=== PATIENT | female | born 1960 | race African-American/Black ===

== ENCOUNTER 2017-01-31 19:11 | Observation (INO) | payer OTHER ==
--- NOTE | 2017-01-31 19:16 | PDOC ---
History of Present Illness - General History Source: Patient Exam Limitations: No Limitations - History of Present Illness Initial Comments: 01/31/17 21:13 A portion of this note was documented by scribe services under my direction. I have reviewed the details of the note, within reason, and agree with the documentation. The case summary and management plan written by me. This is a 56-year-old female with history of multiple medical problems including cancer, sarcoid, sickle cell and fibromyalgia comes in complaining of productive cough, shortness of breath, pleuritic type chest pain and a sore throat. In addition to that patient was also complaining of swelling of her left lower extremity. Patient's chest x-ray was negative for any acute pathology. Patient's ultrasound Doppler was negative for DVT. Patient is a pack and a half a day smoker and her O2 sat here in the emergency room was in the low 90s on room air. It is unclear as to what patient's baseline O2 sat is however she is not on home oxygen. Patient cardiogram shows some lateral ischemic changes with 1mm or less ST depressions with flipped T's laterally. Patient will be admitted to a telemetry observation bed for additional cardiac enzymes and to rule her out for acute coronary syndrome. <Lynda Delcid I - Last Filed: 01/31/17 21:12> - General History Source: Patient Exam Limitations: No Limitations - History of Present Illness Initial Comments: 01/31/17 19:47 The patient is a 56 year old female, with a significant past medical history of sickle cell anemia, sarcoidosis, fibromyalgia, colon cancer, and pancreatitis, who presents to the emergency department with left calf pain and cough for approximately 3 weeks. The patient reports initially developing a cough 3 weeks ago, which was dry in nature. Since then, patient reports her cough has worsened to the point where she is unable to speak much and she has a sore throat. Patient reports developing associated left calf tightness, cramping, and pain. She reports increased swelling to her left leg. Patient reports difficulty ambulating secondary to calf pain, cough, and shortness of breath. She reports mild shortness of breath and night sweats. She denies any associated chest pain or palpitations. She denies any fever, chills, headache, dizziness, or lightheadedness. She denies any recent travel or sick contacts. PAST MEDICAL HISTORY: Sickle cell anemia, sarcoidosis, fibromyalgia, colon cancer, and pancreatitis PAST SURGICAL HISTORY: Right hemicolectomy(2000), Annie fundoplication FAMILY HISTORY: No pertinent history SOCIAL HISTORY: Pt lives with family. Current everyday smoker. No ETOH or recreational drug use. MEDICATIONS: Reviewed ALLERGIES: As per nursing notes PCP: Dr. Garcia General: No fevers or chills, no weakness, no weight loss HEENT: Yes sore throat. No change in vision. No ear pain CardioVascular: Yes shortness of breath. No chest pain. Respiratory: Yes cough, difficulty speaking. No wheezing. Gastrointestinal: No nausea, vomiting, diarrhea or constipation, No rectal bleeding Genitourinary: No dysuria, hematuria, or frequency Musculoskeletal: Yes left calf pain/cramping/ tightness, left leg swelling. No other joint or muscle pain or swelling Neurologic: Yes difficulty ambulating. No headache, vertigo, dizziness or loss of consciousness Psychiatric: No depression Skin: No rashes or easy bruising Endocrine: No increased thirst or abnormal weight change Allergic: No skin or latex allergy All other systems reviewed and normal General: Chronically ill appearing. Well-nourished, no acute distress HEENT: Pt is only able to talk in a whisper. Throat: Mild posterior oropharynx erythema, otherwise no exudates. Neck: Supple, no meningeal signs, no lymphadenopathy Eyes: Pupils equal reactive and round, extraocular motion intact Chest: Nontender to palpation Cardiac: S1-S2 normal, regular rate and rhythm, no murmurs rubs or gallops Respiratory: Good air entry bilaterally, but each deep inspiration produces a productive sounding cough. Abdomen: Soft, nondistended, normal bowel sounds, nontender to palpation diffusely Extremities: Moderate left lower extremity swelling diffusely to the calf, knee , and thigh; no increased erythema or warmth, and no tenderness to palpation. Otherwise remainder of the extremities are warm, dry, no cyanosis, clubbing, or edema Skin: No rashes Neuro: Alert and oriented x3, nonfocal exam, grossly intact, normal gait Psych: Normal mood and affect <Octavio Ashley - Last Filed: 01/31/17 21:33> - General Chief Complaint: Pain Stated Complaint: LEFT KNEE PAIN/SWELLING, SORE THROAT Time Seen by Provider: 01/31/17 19:14 Past History - Past Medical History Cancer: Yes (COLON CA, carcinoid tumor) GI Disorders: Yes (pancreatitis) - Surgical History Abdominal Surgery: Yes (Annie fundoplication, R hemicolectomy 2000 ) - Suicide/Smoking/Psychosocial Hx Smoking Status: Yes Smoking History: Current every day smoker Years of Tobacco Use: 7 Have you smoked in the past 12 months: Yes Number of Cigarettes Smoked Daily: 30 'Breaking Loose' booklet given: 07/06/13 Hx Alcohol Use: No Drug/Substance Use Hx: No Substance Use Type: None <Lynda Delcid I - Last Filed: 01/31/17 21:12> <Octavio Ashley - Last Filed: 01/31/17 21:33> - Past Medical History Allergies/Adverse Reactions: Allergies Allergy/AdvReac Type Severity Reaction Status Date / Time atropine Allergy Verified 01/31/17 19:16 codeine [Codeine] Allergy Verified 01/31/17 19:16 latex Allergy Verified 01/31/17 19:16 meperidine HCl [From Demerol] Allergy Verified 01/31/17 19:16 morphine Allergy Verified 01/31/17 19:16 CONTRAST Allergy Uncoded 01/31/17 19:16 IV CONTRAST Allergy Uncoded 01/31/17 19:16 Home Medications: Ambulatory Orders Trazodone HCl 100 mg PO HS 09/12/12 Oxycodone HCl/Acetaminophen [Percocet 5-325 mg Tablet -] 2 tab PO Q4H PRN #20 tablet 07/06/13 Hydromorphone [Dilaudid -] 4 mg PO Q3H 01/31/17 *Physical Exam - Vital Signs Last Vital Signs Temp Pulse Resp BP Pulse Ox 98.3 F 118 H 20 130/80 98 01/31/17 19:13 01/31/17 19:13 01/31/17 19:13 01/31/17 19:13 01/31/17 19:13 <Octavio Ashley - Last Filed: 01/31/17 21:33> Heart Score/ECG Review - ECG Intrepretation Comment:: 01/31/17 19:39 Vent Rate: 97 bpm IMPRESSION: Normal sinus rhythm. T wave abnormality, consider anterolateral ischemia. <Octavio Ashley - Last Filed: 01/31/17 21:33> ED Treatment Course - LABORATORY CBC & Chemistry Diagram: 01/31/17 20:00 01/31/17 20:00 <Lynda Delcid I - Last Filed: 01/31/17 21:12> - LABORATORY CBC & Chemistry Diagram: 01/31/17 20:00 01/31/17 20:00 - RADIOLOGY Radiograph Interpretation: 01/31/17 21:30 EXAM: CXR INTERPRETED BY: Dr. Chakraborty REVIEWED BY: Dr. Iniguez IMPRESSION: No evidence of airspace consolidation, pulmonary vascular congestion or pleural effusion. EXAM: Left Lower Extremity Venous duplex US INTERPRETED BY: Dr. Chakraborty REVIEWED BY: Dr. Iniguez IMPRESSION: No evidence of left lower extremity deep vein thrombosis <Octavio Ashley - Last Filed: 01/31/17 21:33> *DC/Admit/Observation/Transfer - Discharge Dispostion Admit: Yes <Lynda Delcid I - Last Filed: 01/31/17 21:12> - Attestations Scribe Attestion: 01/31/17 19:39 Documentation prepared by Octavio Ashley, acting as medical radiation therapist for Lynda Delcid MD. <Octavio Ashley - Last Filed: 01/31/17 21:33> Diagnosis at time of Disposition: Viral upper respiratory illness Chest pain Qualifiers: Chest pain type: unspecified Qualified Code(s): R07.9 - Chest pain, unspecified - Discharge Dispostion Condition at time of disposition: Good - Referrals Referrals: Nathan Garcia MD [Primary Care Provider] -
[2017-01-31] MEDS ORDERED: HYDROmorphone HCL CARPU-JECT 1 MG/1 ML DISP.SYRIN IVPUSH ONE ×2 (19:26→21:05)
[2017-01-31] MEDS ORDERED: HYDROmorphone HCL CARPU-JECT 1 MG/1 ML DISP.SYRIN ONE ×2 (19:28→21:07)
[2017-01-31] MEDS ORDERED: ASPIRIN 81 MG CHEWABLE TABLETS PO ONE (19:36)
[2017-01-31 19:44] VITALS: BMI 21.6
[2017-01-31] MEDS ORDERED: ASPIRIN 325 MG TABLET ONE (20:15)
[2017-01-31 20:26] LABS: BASOPHIL 3.1 % (0-2.0); EOSINOPHIL 0.2 % (0-4.5); MCH 25.6 pg (25.7-33.7); MCHC 32.5 g/dl (32.0-36.0); MEAN CELL VOLUME 78.7 fl (80-96); MEAN PLT VOLUME 9.7 fl (7.5-11.1); NEUTROPHILS 51.9 % (42.8-82.8); PLATELET COUNT 263 K/MM3 (134-434); WHITE BLOOD COUNT 5.3 K/mm3 (4.0-10.8)
[2017-01-31 20:35] LABS: INR 0.95 (0.82-1.09); PROTHROMBIN TIME (PATIENT) 10.7 SEC (10.2-13.0)
[2017-01-31 20:54] LABS: ALBUMIN 3.9 g/dl (3.5-5.0); ALK PHOS 57 U/L (32-92); ANION GAP 9 (8-16); BILIRUBIN,TOTAL 0.5 mg/dl (0.2-1.0); CALCIUM 10.2 mg/dl (8.4-10.2); CO2 21 mmol/L (22-28); CPK 92 IU/L (26-192); CREATININE 0.5 mg/dl (0.6-1.3); GLUCOSE,RANDOM 96 mg/dl (74-106); SGOT/AST 22 U/L (10-42); SGPT/ALT 9 U/L (10-40); TOT PROT 7.1 g/dl (6.4-8.3)
[2017-01-31 21:04] LABS: TROPONIN I (DFP) < 0.03 ng/ml (0.03-0.50)
--- NOTE | 2017-01-31 23:21 | HP ---
CHIEF COMPLAINT: cough PCP: Dr. Garcia in [place] HISTORY OF PRESENT ILLNESS: This is a 56 year old female with significant past medical history of sarcoidosis, fibromyalgia, COPD presented to the ED with left leg swelling and pain x 3 weeks, cough and hoarse voice x 5 weeks. Pt denies chest pain, SOB, palpitations. She states the cough just takes over and is unbearable. ER course was notable for: (1) CXR no acute findings (2) Sono LLE without evidence of DVT (3) ECG with abnormal T waves Recent Travel: pt denies PAST MEDICAL HISTORY: Sickle cell trait sarcoidosis fibromyalgia colon CA pancreatitis COPD DM-diet controlled PAST SURGICAL HISTORY: colon resection 1972 Annie fundoplication-2005 total hysterectomy cholecystectomy appendectomy L4-L5 surgery x 2 Social History: Smoking: smoke 1ppd x "3 years" Alcohol: pt denies Drugs: pt denies Family History: mother age 47, leukemia, lung and breast CA father unknown 6 half siblings, no medical issues Allergies atropine Allergy (Verified 01/31/17 19:16) codeine [Codeine] Allergy (Verified 01/31/17 19:16) latex Allergy (Verified 01/31/17 19:16) meperidine HCl [From Demerol] Allergy (Verified 01/31/17 19:16) morphine Allergy (Verified 01/31/17 19:16) CONTRAST Allergy (Uncoded 01/31/17 19:16) IV CONTRAST Allergy (Uncoded 01/31/17 19:16) HOME MEDICATIONS: 3 Medication Instructions Recorded Trazodone HCl 100 mg PO HS 09/12/12 Hydromorphone [Dilaudid -] 4 mg PO Q3H 01/31/17 Albuterol MDI PRN Albuterol nebulizer PRN REVIEW OF SYSTEMS CONSTITUTIONAL: Absent: fever, chills, diaphoresis, generalized weakness, malaise, loss of appetite, weight change HEENT: Absent: rhinorrhea, nasal congestion, throat pain, throat swelling, difficulty swallowing, mouth swelling, ear pain, eye pain, visual changes CARDIOVASCULAR: Present: Left leg swelling and pain Absent: chest pain, syncope, palpitations, irregular heart rate, lightheadedness , peripheral edema RESPIRATORY: Present: cough, hoarse voice Absent: shortness of breath, dyspnea with exertion, orthopnea, wheezing, stridor , hemoptysis GASTROINTESTINAL: Absent: abdominal pain, abdominal distension, nausea, vomiting, diarrhea, constipation, melena, hematochezia GENITOURINARY: Absent: dysuria, frequency, urgency, hesitancy, hematuria, flank pain, genital pain MUSCULOSKELETAL: Absent: myalgia, arthralgia, joint swelling, back pain, neck pain SKIN: Absent: rash, itching, pallor HEMATOLOGIC/IMMUNOLOGIC: Absent: easy bleeding, easy bruising, lymphadenopathy, frequent infections ENDOCRINE: Absent: unexplained weight gain, unexplained weight loss, heat intolerance, cold intolerance NEUROLOGIC: Absent: headache, focal weakness or paresthesias, dizziness, unsteady gait, seizure, mental status changes, bladder or bowel incontinence PSYCHIATRIC: Absent: anxiety, depression, suicidal or homicidal ideation, hallucinations. PHYSICAL EXAMINATION Vital Signs - 24 hr 3 01/31/17 01/31/17 01/31/17 19:13 21:15 22:46 Temperature 98.3 F 98.3 F Pulse Rate 118 H 78 Pulse Rate [ 87 Apical] Respiratory 20 16 18 Rate Blood Pressure 130/80 123/82 Blood Pressure 118/64 [Right Arm] O2 Sat by Pulse 98 96 96 Oximetry (%) GENERAL: Awake, alert, and fully oriented, in no acute distress. HEAD: Normal with no signs of trauma. EYES: Pupils equal, round and reactive to light, extraocular movements intact, sclera anicteric, conjunctiva clear. No lid lag. EARS, NOSE, THROAT: Ears normal, nares patent, oropharynx clear without exudates. Moist mucous membranes. NECK: Normal range of motion, supple without lymphadenopathy, JVD, or masses. LUNGS: Breath sounds equal, clear to auscultation bilaterally. No wheezes, and no crackles. No accessory muscle use. +cough with deep inspiration HEART: Regular rate and rhythm, normal S1 and S2 without murmur, rub or gallop. ABDOMEN: Soft, nontender, not distended, normoactive bowel sounds, no guarding, no rebound, no masses. No hepatomegaly or splenomegaly. MUSCULOSKELETAL: Normal range of motion at all joints. No bony deformities or tenderness. No CVA tenderness. UPPER EXTREMITIES: 2+ pulses, warm, well-perfused. No cyanosis. No clubbing. No peripheral edema. LOWER EXTREMITIES: 2+ pulses, warm, well-perfused. No calf tenderness. 1+ peripheral edema LLE. NEUROLOGICAL: Cranial nerves II-XII intact. Normal speech. Normal gait. PSYCHIATRIC: Cooperative. Good eye contact. Appropriate mood and affect. SKIN: Warm, dry, normal turgor, no rashes or lesions noted, normal capillary refill. Radiology Reports Left lower extremity venous duplex. Indication: Left lower extremity pain and swelling. Technique: Real-time grayscale, color Doppler and spectral Doppler sonogram of the deep veins in the left lower extremity was performed with the technologist utilizing compression and augmentation maneuvers. Left common femoral vein including its junction with the greater saphenous vein , the profunda femoral, femoral, popliteal and posterior tibial veins were interrogated in the left lower extremity. Right common femoral vein was also interrogated. Images are submitted for review. Comparison: None. Findings: No evidence of deep vein thrombosis in the left lower extremity. The interrogated veins, as listed above, demonstrate compressibility and flow related color Doppler signal. Technologist reports patient's tenderness/sensitivity in the left calf, which limits augmentation of the posterior tibial veins in distal popliteal vein. Interrogated portion of the right common femoral vein is also patent with no evidence of thrombosis. Impression: No evidence of left lower extremity deep vein thrombosis, as above. Reported By: Kumar Chakraborty MD 01/31/172109 Chest x-ray-AP portable view Indication: Dyspnea. Comparison: 09/12/2012 chest x -ray Findings: No evidence of airspace consolidation, pulmonary vascular congestion or pleural effusion. There is no definable pneumothorax. Normal size and contours of the cardia mediastinal silhouette. There is calcific atherosclerosis along the aortic arch. There are right hilar surgical clips in right paratracheal surgical clips. No abnormal deviation of the trachea. Impression: No evidence of airspace consolidation, pulmonary vascular congestion or pleural effusion. Reported By: Kumar Chakraborty MD 01/31/172023 ECG Normal Sinus Rhythm Vent rate 97, QTC 459 TWI lead 2, 3, aVF, V4-46 ASSESSMENT/PLAN: 56yF with PMH sickle cell trait, sarcoidosis, fibromyalgia, COPD, DM presented to the ED with cough and left lower extremitiy swelling. She has been admitted for abnormal ECG findings. Abnormal ECG - in absence of chest pain or other symptoms unlikely to be significant - will trend troponin x 3 - repeat ECG in am - monitor on tele - cardiology consult ordered. Cough/COPD - start standing duoneb - pt is allergic to codeine, unable to give robitussin with codeine - pt states she is allergic to all steroids (they gave her the shakes) - unwilling to trial an inhaled steroid - pulmonary consult ordered. - given persistent and spastic cough for over 4 weeks, will test for pertussis and place on isolation. fibromyalgia - cont home dilaudid DVT PPX - chemoprophylaxis deferred as expected LOS <48h FEN - tolerating po fluids - BMP in am - diabetic diet Dispo: Pt currently requires inpatient observation for management of her emergent conditions. Expected LOS is less than 2 [place] Visit type - Emergency Visit Emergency Visit: Yes ED Registration Date: 01/31/17 Care time: The patient presented to the Emergency Department on the above date and was hospitalized for further evaluation of their emergent condition. - New Patient This patient is new to me today: Yes Date on this admission: 01/31/17 - Critical Care Critical Care patient: No
[2017-01-31] MEDS ORDERED: traZODone HCL 100 MG TABLET (FP) PO SCH (23:30)
[2017-01-31] MEDS ORDERED: traZODone HCL 50 MG TABLET (FP) ONE (23:39)
[2017-01-31] MEDS: guaiFENesin/D-METHORPHAN HB 10 ML UNIT-DOSE CUPS PO PRN (23:42)
[2017-01-31] MEDS: ALBUTEROL SO4 2.5/IPRATROPIUM 0.5 INH SOL 3 ML VIAL.NEB. NEB SCH (23:43)
[2017-02-01] MEDS: ALBUTEROL SO4 2.5/IPRATROPIUM 0.5 INH SOL 3 ML VIAL.NEB. NEB SCH (06:43)
[2017-02-01] MEDS: INSULIN SLIDING SCALE (NOVOLOG) 1 VIAL SQ SCH ×2 (06:51→16:22)
[2017-02-01 08:08] LABS: MCH 25.6 pg (25.7-33.7); MCHC 32.6 g/dl (32.0-36.0); MEAN CELL VOLUME 78.5 fl (80-96); MEAN PLT VOLUME 10.1 fl (7.5-11.1); PLATELET COUNT 211 K/MM3 (134-434); RDW 17.5 % (11.6-15.6)
--- NOTE | 2017-02-01 08:16 | PN ---
Physical Exam: SUBJECTIVE: Patient seen and examined, reports ongoing left lower quadrant abd pain OBJECTIVE: patient is a 56 y/o female, with a past medical history of Sickle cell trait, sarcoidosis, fibromyalgia, colon CA, pancreatitis, COPD, and DM- diet controlled. Patient was admitted from the emergency department for abnormal EKG. Vital Signs Period Temp Pulse Resp BP Sys/Jimenez Pulse Ox Last 24 Hr 98.3 F-98.3 F 71-85 17-18 114-127/72-85 96-99 GENERAL: The patient is awake, alert, and fully oriented, in no acute distress. HEAD: Normal with no signs of trauma. EYES: PERRL, extraocular movements intact, sclera anicteric, conjunctiva clear. No ptosis. ENT: Ears normal, nares patent, oropharynx clear without exudates, moist mucous membranes. NECK: Trachea midline, full range of motion, supple. LUNGS: Breath sounds equal, course rhonchi to bilateral apexes, diminished to bases, no wheezes, no crackles, no accessory muscle use. HEART: Regular rate and rhythm, S1, S2 without murmur, rub or gallop. ABDOMEN: Soft, left lower quadrant tenderness, nondistended, normoactive bowel sounds, no guarding, no rebound, no hepatosplenomegaly, no masses. EXTREMITIES: 2+ pulses, warm, well-perfused, no edema. NEUROLOGICAL: Cranial nerves II through XII grossly intact. Normal speech, gait not observed. PSYCH: Normal mood, normal affect. SKIN: Warm, dry, normal turgor, no rashes or lesions noted Laboratory Results - last 24 hr 02/01/17 02/01/17 02/01/17 03:00 03:00 06:50 WBC RBC Hgb Hct MCV MCH MCHC RDW Plt Count MPV Neutrophils % Lymphocytes % POC Glucometer 118 Troponin I Cancelled < 0.02 02/01/17 07:50 WBC 4.0 RBC 4.40 Hgb 11.3 D Hct 34.6 MCV 78.5 L MCH 25.6 L MCHC 32.6 RDW 17.5 H Plt Count 211 MPV 10.1 Neutrophils % No Result Required. Lymphocytes % No Result Required. POC Glucometer Troponin I Active Medications Generic Name Dose Route Start Last Admin Trade Name Freq PRN Reason Stop Dose Admin Albuterol/Ipratropium 1 amp 02/01/17 00:00 02/01/17 06:43 Duoneb - NEB 1 amp QIDR ERNA Administration Guaifenesin 10 ml 01/31/17 23:28 Robitussin Dm - PO Q4H PRN COUGH Hydromorphone HCl 4 mg 01/31/17 23:27 02/01/17 04:00 Dilaudid - PO 4 mg Q4H PRN Administration PAIN Insulin Aspart 1 vial 02/01/17 07:00 02/01/17 06:51 Novolog Vial Sliding Scale - SQ Not Given BIDAC [facility] Protocol Trazodone HCl 100 mg 02/01/17 22:00 Desyrel - PO HS ERNA ASSESSMENT/PLAN: Left lower extremity venous duplex. Indication: Left lower extremity pain and swelling. Technique: Real-time grayscale, color Doppler and spectral Doppler sonogram of the deep veins in the left lower extremity was performed with the technologist utilizing compression and augmentation maneuvers. Left common femoral vein including its junction with the greater saphenous vein , the profunda femoral, femoral, popliteal and posterior tibial veins were interrogated in the left lower extremity. Right common femoral vein was also interrogated. Images are submitted for review. Comparison: None. Findings: No evidence of deep vein thrombosis in the left lower extremity. The interrogated veins, as listed above, demonstrate compressibility and flow related color Doppler signal. Technologist reports patient's tenderness/sensitivity in the left calf, which limits augmentation of the posterior tibial veins in distal popliteal vein. Interrogated portion of the right common femoral vein is also patent with no evidence of thrombosis. Impression: No evidence of left lower extremity deep vein thrombosis, as above. Reported By: Kumar Chakraborty MD 01/31/172109 Chest x-ray-AP portable view Indication: Dyspnea. Comparison: 09/12/2012 chest x -ray Findings: No evidence of airspace consolidation, pulmonary vascular congestion or pleural effusion. There is no definable pneumothorax. Normal size and contours of the cardia mediastinal silhouette. There is calcific atherosclerosis along the aortic arch. There are right hilar surgical clips in right paratracheal surgical clips. No abnormal deviation of the trachea. Impression: No evidence of airspace consolidation, pulmonary vascular congestion or pleural effusion. Reported By: Kumar Chakraborty MD 01/31/172023 ECG Normal Sinus Rhythm Vent rate 97, QTC 459 TWI lead 2, 3, aVF, V4-46 ASSESSMENT/PLAN: 1) card Abnormal ECG - troponin x 2 wnl, pending 3rd - pending echo - continous cardiac monitoring - cardiology consulted and following, Dr Anne 2) pulm acute copd excerbation - continue standing duoneb - pt is allergic to codeine, unable to give robitussin with codeine - patient declines steroids reports an adverse reaction of "shakiness" - trial symbicort - paroxysmal cough noted, will start empiric zithromax and continue droplet isolation - pulmonary, Dr Maria consulted and following 3) GI abdominal pain - tolerating PO fluids - pending ct scan abd/pelvis with oral contrast 4) neuro fibromyalgia - cont home dilaudid, prescription verified with [facility] reference # [id number] DVT PPX - chemoprophylaxis deferred as expected LOS <48h FEN - tolerating po fluids - BMP in am - diabetic diet Dispo: Pt currently requires inpatient observation for management of her emergent conditions. Expected LOS is less than 2 [place] Visit type - Emergency Visit Emergency Visit: Yes ED Registration Date: 01/31/17 Care time: The patient presented to the Emergency Department on the above date and was hospitalized for further evaluation of their emergent condition. - New Patient This patient is new to me today: Yes Date on this admission: 02/01/17 - Critical Care Critical Care patient: No - Discharge Referral Referred to [facility] Med P.C.: No
[2017-02-01 08:20] LABS: ANION GAP 7 (8-16); CALCIUM 9.6 mg/dl (8.4-10.2); CO2 24 mmol/L (22-28); CREATININE 0.5 mg/dl (0.6-1.3); GLUCOSE,RANDOM 111 mg/dl (74-106); MAGNESIUM 2.1 mg/dL (1.8-2.4); PHOSPHOROUS 3.6 mg/dl (2.5-4.6)
[2017-02-01] MEDS ORDERED: ONDANSETRON 4 MG/2 ML VIAL IVPUSH ONE (10:15)
--- NOTE | 2017-02-01 10:15 | PN ---
Progress Note (short form) - Note Progress Note: PULMONARY CONSULTATION DICTATED 02/01/17 IMP COUGH ?INFECTIOUS ?PERTUSSIS,POST INFECTIOUS HYPERREACTIVE AIRWAY,? SECONDARY TO SARCOID SARCOID COPD H/O DVT H/O COLON CA H/O PANCREATITIS PLAN SYMBICORT ZITHROMAX PERTUSSIS SEROLOGY CHEST CT ECHO PEAK FLOW PFTS OUTPATIENT ANTI-TUSSIVES DR LORA Problem List - Problems (1) Chest pain Code(s): R07.9 - CHEST PAIN, UNSPECIFIED Qualifiers: Chest pain type: unspecified Qualified Code(s): R07.9 - Chest pain, unspecified; R07.9 - Chest pain, unspecified (2) Sarcoid Code(s): D86.9 - SARCOIDOSIS, UNSPECIFIED (3) Cough Code(s): R05 - COUGH (4) COPD (chronic obstructive pulmonary disease) Code(s): J44.9 - CHRONIC OBSTRUCTIVE PULMONARY DISEASE, UNSPECIFIED (5) H/O deep venous thrombosis Code(s): Z86.718 - PERSONAL HISTORY OF OTHER VENOUS THROMBOSIS AND EMBOLISM
[2017-02-01] MEDS ORDERED: ALBUTEROL SO4 2.5/IPRATROPIUM 0.5 INH SOL 3 ML VIAL.NEB. NEB PRN (10:19)
[2017-02-01] MEDS ORDERED: AZITHROMYCIN IVPB 250 ML IVPB ONE (10:30)
--- NOTE | 2017-02-01 10:48 | EKG ---
Test Reason : Blood Pressure : / mmHG Vent. Rate : 097 BPM Atrial Rate : 097 BPM P-R Int : 124 ms QRS Dur : 086 ms QT Int : 362 ms P-R-T Axes : 076 -18 -13 degrees QTc Int : 459 ms NORMAL SINUS RHYTHM T WAVE ABNORMALITY, CONSIDER ANTEROLATERAL ISCHEMIA ? LAE NO PREVIOUS ECGS AVAILABLE Confirmed by MD INTERIANO MARJORY ([id number]) on 02/01/2017 10:48:13 AM Referred By: TAVO Confirmed By:ESEQUIEL INTERIANO MD
[2017-02-01] MEDS ORDERED: PT OWN MED DRAWER 7, Y5N ONE ×2 (11:02→21:11)
--- NOTE | 2017-02-01 11:07 | CON.CARD ---
Consult Consult Specialty:: Cardiology Referred by:: Hospitalist Reason for Consultation:: Cardiac evaluation - History of Present Illness Chief Complaint: Abdominal pain, abnormal ECG History of Present Illness: Patient is a 56 year old female with underlying history of pulmonary sarcoidosis, fibromyalgia, COPD, sickle cell trait, colon CA and pancreatitis who presents to [facility] with cough, leg swelling and hoarse voice. She denies chest pain, shortness of breath or palpitations. She denies paroxysmal nocturnal dyspnea or orthopnea. She denies fever or chills. She denies headache or lightheadedness. She complains of left abdominal discomfor with palpation. ECG revealed sinus rhythm with diffuse T wave abnormality in anterior leads. Cardiology consultation was called for further evaluation. - History Source History Provided By: Patient, Medical Record Limitations to Obtaining History: No Limitations - Past Medical History Pulmonary: Yes: COPD, Other (Sarcoidosis) Gastrointestinal: Yes: Cancer (Colon CA), Pancreatitis ...LMP Comment: HYSTERECTOMY 27 YEARS AGO Rheumatology: Yes: Fibromyalgia - Past Surgical History Past Surgical History: Yes: Appendectomy, Cholecystectomy, Hysterectomy Additional Surgical History: Annie fundoplication, hemicolectomy, lumbar surgery - Alcohol/Substance Use Hx Alcohol Use: No - Smoking History Smoking history: Current every day smoker Have you smoked in the past 12 months: Yes Aproximately how many cigarettes per day: 30 Home Medications - Allergies Allergies/Adverse Reactions: Allergies Allergy/AdvReac Type Severity Reaction Status Date / Time atropine Allergy Verified 01/31/17 19:16 codeine [Codeine] Allergy Verified 01/31/17 19:16 latex Allergy Verified 01/31/17 19:16 meperidine HCl [From Demerol] Allergy Verified 01/31/17 19:16 morphine Allergy Verified 01/31/17 19:16 CONTRAST Allergy Uncoded 01/31/17 19:16 IV CONTRAST Allergy Uncoded 01/31/17 19:16 - Home Medications Home Medications: Ambulatory Orders Trazodone HCl 100 mg PO HS 09/12/12 Oxycodone HCl/Acetaminophen [Percocet 5-325 mg Tablet -] 2 tab PO Q4H PRN #20 tablet 07/06/13 Albuterol Sulfate Inhaler - [Ventolin Hfa Inhaler -] 2 inh PO Q6H PRN 01/31/17 Hydromorphone [Dilaudid -] 4 mg PO Q3H 01/31/17 Family Disease History - Family Disease History Family Disease History: CA: Mother Other Family History: Mother age 47, leukemia, lung and breast CA Review of Systems - Review of Systems Constitutional: denies: Chills, Fever Cardiovascular: denies: Chest Pain, Palpitations, Shortness of Breath Respiratory: reports: Cough. denies: Hemoptysis, Orthopnea, PND, SOB, SOB on Exertion Gastrointestinal: reports: Abdominal Pain. denies: Constipation, Diarrhea, Melena, Nausea, Rectal Bleeding, Vomiting Musculoskeletal: reports: Back Pain, Joint Pain Neurological: reports: Weakness. denies: Confusion, Dizziness, Headache, Seizure, Syncope Vital Signs: Vital Signs Temperature 98.3 F 02/01/17 05:33 Pulse Rate 85 02/01/17 06:06 Respiratory Rate 02/01/17 06:06 Blood Pressure 127/85 02/01/17 06:06 O2 Sat by Pulse Oximetry (%) 99 02/01/17 08:57 Neck: Yes: Supple Respiratory: Yes: CTA Bilaterally Gastrointestinal: Yes: Soft, Tenderness (left quadrant) Cardiovascular: Yes: Regular Rate and Rhythm JVD: No Carotid Bruit: No PMI: Non-Displaced Heart Sounds: Yes: S1, S2 Murmur: No: Systolic Murmur, Diastolic Murmur Edema: No - Other Data Labs, Other Data: CBC, BMP 02/01/17 07:50 02/01/17 07:00 INR, PTT INR 0.95 (0.82-1.09) L 01/31/17 20:00 Troponin, BNP 02/01/17 02/01/17 03:00 03:00 Troponin I Cancelled < 0.02 Sinus rhythm with diffuse T wave abnormality in anterior lead Echo: Pending Imaging - Results Chest X-ray: Report Reviewed (Unremarkable) Cat Scan: Pending EKG: Report Reviewed Problem List - Problems (1) Cough Code(s): R05 - COUGH (2) H/O deep venous thrombosis Code(s): Z86.718 - PERSONAL HISTORY OF OTHER VENOUS THROMBOSIS AND EMBOLISM (3) Sarcoid Code(s): D86.9 - SARCOIDOSIS, UNSPECIFIED (4) Viral upper respiratory illness Code(s): J06.9 - ACUTE UPPER RESPIRATORY INFECTION, UNSPECIFIED B97.89 - OTH VIRAL AGENTS THE CAUSE OF DISEASES CLASSD ELSWHR (5) Fibromyalgia Code(s): M79.7 - FIBROMYALGIA (6) Sickle cell trait Code(s): D57.3 - SICKLE-CELL TRAIT Assessment/Plan 1. Abdominal pain with underlying history of pancreatitis, etiology to be determined 2. Abnormal ECG rule out CAD 3. History of pulmonary sarcoidosis 4. Fibromyalgia 5. COPD 6. History of sickle cell trait 7. History of colon CA PLAN: 1. Abdominal CT to follow 2. Chest CT ordered by pulmonary 3. Transthoracic echocardiography to assess LV/RV and valvular function 4. Pulmonary input noted 5. Analgesics as needed 6. No specific cardiac therapy is warranted at this time Further plans are to follow Hans Moss MD
[2017-02-01] MEDS: BUDESONIDE/FORMETEROL FUMARATE 160/4.5 mcg INHALER IH SCH ×3 (11:16→21:22)
[2017-02-01 12:59] LABS: AMYLASE 70 U/L (25-125)
[2017-02-01 13:04] LABS: CPK 72 IU/L (26-192)
[2017-02-01 13:11] LABS: TROPONIN I (DFP) < 0.03 ng/ml (0.03-0.50)
[2017-02-01] MEDS ORDERED: diphenhydrAMINE HCL 25 MG CAPSULE (FP) PO ONE (13:30)
--- NOTE | 2017-02-01 14:32 | CONS ---
PULMONARY CONSULTATION DATE OF CONSULTATION: 02/01/2017 REFERRING PHYSICIAN: Giovanna De La O NP HISTORY OF PRESENT ILLNESS: The patient is a 56-year-old black female with a past medical history of sarcoidosis apparently diagnosed 20 years ago by mediastinoscopy. She is currently on no medications. She has a history of fibromyalgia, COPD, colon CA status post resection and chemotherapy, diabetes mellitus, diet controlled, a DVT 2 years ago in the left lower extremity, sickle cell trait, Annie fundoplication in 2004, total abdominal hysterectomy, L4-L5 surgery. She was admitted to [facility] with a complaint of increasing shortness of breath, cough and hoarse voice. The patient states that 3-4 weeks ago, she started developing a cough that was nonproductive, associated with hoarse voice. She also had some shortness of breath secondary to the cough. Denied any fevers, chills, nausea or vomiting. She is unsure whether or not these symptoms were preceded by an upper respiratory tract infection. Her symptoms continued to worsen, at which time she presented to the emergency room. She also complained of left lower extremity swelling. She underwent a lower extremity duplex which was negative for DVT. The patient was admitted and was started on bronchodilators. She refused IV STEROIDS SECONDARY TO AN ALLERGIC REACTION when she develops shakes. The patient denies hemoptysis. She has had significant weight loss over the past few years. There is no history of occupational exposure to chemicals or fumes. There is no history of recent travel. PAST MEDICAL HISTORY: Again, her history includes sarcoidosis, fibromyalgia, COPD, sickle cell trait, pancreatitis, colon CA status post resection, diet-controlled diabetes, Annie fundoplication and total abdominal hysterectomy. CURRENT MEDICATIONS: Robitussin, Zithromax, NovoLog and Dilaudid. REVIEW OF SYSTEMS: Positive for cough, shortness of breath and abdominal pain secondary to cough. No chest pain. No palpitations. No nausea. No vomiting. No hemoptysis. Positive for left lower extremity edema. PHYSICAL EXAMINATION: General: The patient is a well-developed, well-nourished female, awake, alert. Vital Signs: She is currently afebrile. Heart rate is 85, blood pressure is 127/85, respiratory rate is 17, O2 saturation is 99% on room air. HEENT: Normocephalic, atraumatic. Neck: Supple. Heart: Regular. Lungs: A few scattered rhonchi. Abdomen: Soft. Bowel sounds are positive. Extremities: No cyanosis. No edema. LABORATORY DATA: WBC is 4, hemoglobin 11.3, hematocrit 34.6, with platelet count of 211,000. INR is 0.95. D-dimer is 490. Pertussis is pending. Chest x-ray reveals no infiltrates or effusions. IMPRESSION: 1. Cough, etiology to be determined; assumed to be infectious. Possible pertussis. Possible post-infection by hyper-reactive airway. Possibly secondary to sarcoid. 2. Sarcoidosis. 3. Chronic obstructive pulmonary disease. 4. Polymyalgia. 5. Colon cancer. 6. History of pancreatitis. 7. History of fundoplication. 8. History of deep venous thrombosis in the left lower extremity. PLAN: 1. Inhaled bronchodilators, plus inhaled corticosteroid. Check peak flow. CT scan of the chest. 2. Echocardiogram. 3. Work up pertussis serology. 4. CT of the abdomen to evaluate abdominal pain. 5. Pulmonary function tests as an outpatient. Nanci [id number] MTDD
[2017-02-01] MEDS ORDERED: INSULIN (NOVOLOG) ASPART 100 UNITS/ML 10ML VIAL ONE (15:59)
[2017-02-01] MEDS ORDERED: HYDROmorphone HCL 2 MG TABLET PO ONE (17:34)
[2017-02-01] MEDS ORDERED: ACETAMINOPHEN 325 MG TABLET (FP) PO PRN (17:35)
[2017-02-01] MEDS: KETOROLAC TROMETHAMINE 10 MG TABLET PO SCH (20:06)
[2017-02-01] MEDS: traZODone HCL 50 MG TABLET (FP) PO SCH (21:19)
[2017-02-02] MEDS: KETOROLAC TROMETHAMINE 10 MG TABLET PO SCH ×2 (00:03→06:02)
[2017-02-02] MEDS ORDERED: PT OWN MED DRAWER 7, Y5N ONE ×2 (06:00→09:52)
[2017-02-02] MEDS: INSULIN SLIDING SCALE (NOVOLOG) 1 VIAL SQ SCH (06:20)
--- NOTE | 2017-02-02 07:23 | PN ---
Progress Note, Physician History of Present Illness: pulmonary alert,still c/o cough,-sob. o2 sat 96% - Current Medication List Current Medications: Active Medications Acetaminophen (Tylenol -) 650 mg PO Q6H PRN PRN Reason: FEVER OR PAIN Albuterol/Ipratropium (Duoneb -) 1 amp NEB Q4H PRN PRN Reason: SHORTNESS OF BREATH Last Admin: 02/01/17 11:15 Dose: 1 amp Budesonide/Formoterol Fumarate (Symbicort 160/4.5mcg -) 2 puff IH BID ERNA Last Admin: 02/01/17 21:22 Dose: Not Given Guaifenesin (Robitussin Dm -) 10 ml PO Q4H PRN PRN Reason: COUGH Hydromorphone HCl (Dilaudid -) 4 mg PO Q4H PRN PRN Reason: PAIN Last Admin: 02/02/17 06:54 Dose: 4 mg Insulin Aspart (Novolog Vial Sliding Scale -) 1 vial SQ BIDAC ERNA PRN Reason: Protocol Last Admin: 02/02/17 06:20 Dose: Not Given Ketorolac Tromethamine (Toradol) 10 mg PO Q6HPO [facility] Stop: 02/06/17 17:59 Last Admin: 02/02/17 06:02 Dose: 10 mg Trazodone HCl (Desyrel -) 100 mg PO HS [facility] Last Admin: 02/01/17 21:19 Dose: 100 mg - Objective Vital Signs: Vital Signs Temperature 97.8 F 02/02/17 04:30 Pulse Rate 85 02/02/17 04:30 Respiratory Rate 20 02/02/17 04:30 Blood Pressure 148/87 02/02/17 04:30 O2 Sat by Pulse Oximetry (%) 99 02/02/17 04:30 Constitutional: Yes: Well Nourished, Calm Eyes: Yes: WNL HENT: Yes: WNL Neck: Yes: WNL Cardiovascular: Yes: Regular Rate and Rhythm, S1, S2 Respiratory: Yes: Diminished Gastrointestinal: Yes: Normal Bowel Sounds, Soft, Tenderness Extremities: Yes: WNL Edema: No Labs: - ....Imaging Cat Scan: Report Reviewed, Image Reviewed Problem List - Problems (1) Chest pain Code(s): R07.9 - CHEST PAIN, UNSPECIFIED Qualifiers: Chest pain type: unspecified Qualified Code(s): R07.9 - Chest pain, unspecified; R07.9 - Chest pain, unspecified (2) Sarcoid Code(s): D86.9 - SARCOIDOSIS, UNSPECIFIED (3) Cough Code(s): R05 - COUGH (4) COPD (chronic obstructive pulmonary disease) Code(s): J44.9 - CHRONIC OBSTRUCTIVE PULMONARY DISEASE, UNSPECIFIED Qualifiers : COPD type: unspecified COPD Qualified Code(s): J44.9 - Chronic obstructive pulmonary disease, unspecified; J44.9 - Chronic obstructive pulmonary disease, unspecified; J44.9 - Chronic obstructive pulmonary disease, unspecified; J44.9 - Chronic obstructive pulmonary disease, unspecified (5) H/O deep venous thrombosis Code(s): Z86.718 - PERSONAL HISTORY OF OTHER VENOUS THROMBOSIS AND EMBOLISM Assessment/Plan MP COUGH ?INFECTIOUS ?PERTUSSIS,POST INFECTIOUS HYPERREACTIVE AIRWAY,?SECONDARY TO SARCOID SARCOID COPD H/O DVT H/O COLON CA H/O PANCREATITIS colitis PLAN SYMBICORT ZITHROMAX PERTUSSIS SEROLOGY PENDING GI EVALUATION ECHO PEAK FLOW PFTS OUTPATIENT ANTI-TUSSIVES DR LORA Problem List - Problems (1) Chest pain Code(s): R07.9 - CHEST PAIN, UNSPECIFIED Qualifiers: Chest pain type: unspecified Qualified Code(s): R07.9 - Chest pain, unspecified; R07.9 - Chest pain, unspecified (2) Sarcoid Code(s): D86.9 - SARCOIDOSIS, UNSPECIFIED (3) Cough Code(s): R05 - COUGH (4) COPD (chronic obstructive pulmonary disease) Code(s): J44.9 - CHRONIC OBSTRUCTIVE PULMONARY DISEASE, UNSPECIFIED (5) H/O deep venous thrombosis Code(s): Z86.718 - PERSONAL HISTORY OF OTHER VENOUS THROMBOSIS AND EMBOLISM
[2017-02-02 08:41] LABS: CPK 89 IU/L (26-192)
[2017-02-02] MEDS ORDERED: AZITHROMYCIN 250 MG TABLET PO SCH (09:00)
--- NOTE | 2017-02-02 09:10 | PN ---
Progress Note, Physician History of Present Illness: Continued cough, abd discomfort. - Current Medication List Current Medications: Active Medications Acetaminophen (Tylenol -) 650 mg PO Q6H PRN PRN Reason: FEVER OR PAIN Albuterol/Ipratropium (Duoneb -) 1 amp NEB Q4H PRN PRN Reason: SHORTNESS OF BREATH Last Admin: 02/01/17 11:15 Dose: 1 amp Azithromycin (Zithromax -) 250 mg PO DAILY [facility] Stop: 02/06/17 08:59 Budesonide/Formoterol Fumarate (Symbicort 160/4.5mcg -) 2 puff IH BID [facility] Last Admin: 02/01/17 21:22 Dose: Not Given Guaifenesin (Robitussin Dm -) 10 ml PO Q4H PRN PRN Reason: COUGH Hydromorphone HCl (Dilaudid -) 4 mg PO Q4H PRN PRN Reason: PAIN Last Admin: 02/02/17 06:54 Dose: 4 mg Insulin Aspart (Novolog Vial Sliding Scale -) 1 vial SQ BIDAC ERNA PRN Reason: Protocol Last Admin: 02/02/17 06:20 Dose: Not Given Ketorolac Tromethamine (Toradol) 10 mg PO Q6HPO [facility] Stop: 02/06/17 17:59 Last Admin: 02/02/17 06:02 Dose: 10 mg Lactobacillus Acidophilus (Bacid -) 1 tab PO DAILY [facility] Trazodone HCl (Desyrel -) 100 mg PO HS [facility] Last Admin: 02/01/17 21:19 Dose: 100 mg - Objective Vital Signs: Vital Signs Temperature 97.8 F 02/02/17 04:30 Pulse Rate 85 02/02/17 04:30 Respiratory Rate 20 02/02/17 08:37 Blood Pressure 148/87 02/02/17 04:30 O2 Sat by Pulse Oximetry (%) 99 02/02/17 04:30 Constitutional: Yes: No Distress, Calm Neck: Yes: Supple Cardiovascular: Yes: Regular Rate and Rhythm Respiratory: Yes: Regular, Diminished Gastrointestinal: Yes: Soft, Hypoactive Bowel Sounds, Tenderness Edema: No Labs: CBC, BMP 02/01/17 07:50 02/01/17 07:00 INR, PTT INR 0.95 (0.82-1.09) L 01/31/17 20:00 - ....Imaging Cat Scan: Report Reviewed (Chronic granulomatous disease, post right hemicolectomy with suspected colitis) EKG: Report Reviewed (NSR @ 91 anterolateral TWI) Problem List - Problems (1) COPD (chronic obstructive pulmonary disease) Code(s): J44.9 - CHRONIC OBSTRUCTIVE PULMONARY DISEASE, UNSPECIFIED Qualifiers : COPD type: unspecified COPD Qualified Code(s): J44.9 - Chronic obstructive pulmonary disease, unspecified; J44.9 - Chronic obstructive pulmonary disease, unspecified; J44.9 - Chronic obstructive pulmonary disease, unspecified; J44.9 - Chronic obstructive pulmonary disease, unspecified (2) Cough Code(s): R05 - COUGH (3) Sarcoid Code(s): D86.9 - SARCOIDOSIS, UNSPECIFIED (4) Sickle cell trait Code(s): D57.3 - SICKLE-CELL TRAIT (5) Colitis Code(s): K52.9 - NONINFECTIVE GASTROENTERITIS AND COLITIS, UNSPECIFIED (6) Abnormal ECG Code(s): R94.31 - ABNORMAL ELECTROCARDIOGRAM [ECG] [EKG] Assessment/Plan 1. Abdominal pain referable to colitis 2. Abnormal ECG rule out CAD 3. History of pulmonary sarcoidosis with need to exclude cardiac involvement 4. Fibromyalgia 5. COPD 6. History of sickle cell trait 7. History of colon CA 8. H/o pancreatitis PLAN: 1. F/u Transthoracic echocardiography to assess LV/RV and valvular function 2. Pulmonary input noted, peak flows, PFT, BD and O2 as needed 3. Analgesics as needed, empiric abx, send off stool samples, GI evaluation 4. Outpatient cardiac MRI or PET to exclude cardiac sarcoidosis, outpatient stress testing
[2017-02-02 09:35] LABS: TROPONIN I < 0.03 ng/ml (0.00-0.05)
[2017-02-02] MEDS: LACTOBACILLUS ACIDOPHILUS 1 EACH TAB (FP) PO SCH (10:25)
[2017-02-02] MEDS: guaiFENesin/D-METHORPHAN HB 10 ML UNIT-DOSE CUPS PO PRN (10:25)
[2017-02-02] MEDS: BUDESONIDE/FORMETEROL FUMARATE 160/4.5 mcg INHALER IH SCH ×2 (10:26→21:56)
--- NOTE | 2017-02-02 10:32 | PN ---
Physical Exam: SUBJECTIVE: Patient seen and examined, reports she was unable to tolerate clears , patient was observed eating bermudez's, ambulatory throughout nursing station , patient is requesting IV dilaudid OBJECTIVE: patient is a 56 y/o female, with a past medical history of Sickle cell trait, sarcoidosis, fibromyalgia, colon CA, pancreatitis, COPD, and DM- diet controlled. Patient was admitted from the emergency department for abnormal EKG. Vital Signs Period Temp Pulse Resp BP Sys/Jimenez Pulse Ox Last 24 Hr 97.8 F-98.8 F 71-85 18-20 148-156/87-95 99-100 GENERAL: The patient is awake, alert, and fully oriented, in no acute distress. HEAD: Normal with no signs of trauma. EYES: PERRL, extraocular movements intact, sclera anicteric, conjunctiva clear. No ptosis. ENT: Ears normal, nares patent, oropharynx clear without exudates, moist mucous membranes. NECK: Trachea midline, full range of motion, supple. LUNGS: Breath sounds equal, clear to auscultation bilaterall to apexes, course rhonchi to bases, no wheezes, no crackles, no accessory muscle use. HEART: Regular rate and rhythm, S1, S2 without murmur, rub or gallop. ABDOMEN: Soft, nontender, nondistended, normoactive bowel sounds, no guarding, no rebound, no hepatosplenomegaly, no masses. EXTREMITIES: 2+ pulses, warm, well-perfused, no edema. NEUROLOGICAL: Cranial nerves II through XII grossly intact. Normal speech, gait not observed. PSYCH: Normal mood, normal affect. SKIN: Warm, dry, normal turgor, no rashes or lesions noted Laboratory Results - last 24 hr 02/01/17 02/01/17 02/01/17 07:30 07:30 07:50 WBC 4.0 RBC 4.40 Hgb 11.3 D Hct 34.6 MCV 78.5 L MCH 25.6 L MCHC 32.6 RDW 17.5 H Plt Count 211 MPV 10.1 Neutrophils % (Manual) 49 Band Neuts % (Manual) 1 Lymphocytes % (Manual) 36 Monocytes % (Manual) 14 H POC Glucometer Creatine Kinase 72 Troponin I < 0.03 L Total Amylase 70 Lipase 56 H 02/01/17 02/02/17 02/02/17 15:03 06:16 07:00 WBC RBC Hgb Hct MCV MCH MCHC RDW Plt Count MPV Neutrophils % (Manual) Band Neuts % (Manual) Lymphocytes % (Manual) Monocytes % (Manual) POC Glucometer 205 120 Creatine Kinase 89 Troponin I < 0.03 Total Amylase Lipase Active Medications Generic Name Dose Route Start Last Admin Trade Name Freq PRN Reason Stop Dose Admin Acetaminophen 650 mg 02/01/17 17:35 Tylenol - PO Q6H PRN FEVER OR PAIN Albuterol/Ipratropium 1 amp 02/01/17 10:19 02/01/17 11:15 Duoneb - NEB 1 amp Q4H PRN Administration SHORTNESS OF BREATH Azithromycin 250 mg 02/02/17 09:00 Zithromax - PO 02/06/17 08:59 DAILY ERNA Budesonide/Formoterol Fumarate 2 puff 02/01/17 10:45 02/02/17 10:26 Symbicort 160/4.5mcg - IH 2 puff BID ERNA Administration Guaifenesin 10 ml 01/31/17 23:28 02/02/17 10:25 Robitussin Dm - PO 10 ml Q4H PRN Administration COUGH Hydromorphone HCl 4 mg 01/31/17 23:27 02/02/17 06:54 Dilaudid - PO 4 mg Q4H PRN Administration PAIN Insulin Aspart 1 vial 02/01/17 07:00 02/02/17 06:20 Novolog Vial Sliding Scale - SQ Not Given BIDAC [facility] Protocol Ketorolac Tromethamine 10 mg 02/01/17 18:00 02/02/17 06:02 Toradol PO 02/06/17 17:59 10 mg Q6HPO ERNA Administration Lactobacillus Acidophilus 1 tab 02/02/17 10:00 02/02/17 10:25 Bacid - PO 1 tab DAILY ERNA Administration Trazodone HCl 100 mg 02/01/17 22:00 02/01/17 21:19 Desyrel - PO 100 mg HS ERNA Administration IMAGING Left lower extremity venous duplex. Indication: Left lower extremity pain and swelling. Technique: Real-time grayscale, color Doppler and spectral Doppler sonogram of the deep veins in the left lower extremity was performed with the technologist utilizing compression and augmentation maneuvers. Left common femoral vein including its junction with the greater saphenous vein , the profunda femoral, femoral, popliteal and posterior tibial veins were interrogated in the left lower extremity. Right common femoral vein was also interrogated. Images are submitted for review. Comparison: None. Findings: No evidence of deep vein thrombosis in the left lower extremity. The interrogated veins, as listed above, demonstrate compressibility and flow related color Doppler signal. Technologist reports patient's tenderness/sensitivity in the left calf, which limits augmentation of the posterior tibial veins in distal popliteal vein. Interrogated portion of the right common femoral vein is also patent with no evidence of thrombosis. Impression: No evidence of left lower extremity deep vein thrombosis, as above. Reported By: Kumar Chakraborty MD 01/31/172109 Chest x-ray-AP portable view Indication: Dyspnea. Comparison: 09/12/2012 chest x -ray Findings: No evidence of airspace consolidation, pulmonary vascular congestion or pleural effusion. There is no definable pneumothorax. Normal size and contours of the cardia mediastinal silhouette. There is calcific atherosclerosis along the aortic arch. There are right hilar surgical clips in right paratracheal surgical clips. No abnormal deviation of the trachea. Impression: No evidence of airspace consolidation, pulmonary vascular congestion or pleural effusion. Reported By: Kumar Chakraborty MD 01/31/172023 ct of chest/abd/pelvis with oral contrast: consistent with chronic lung disease , no acute pathology of the chest, diffuse thickening and irregularity of the remainder of the colon suspicious for colitis as per radiologist, Dr Han ECG Normal Sinus Rhythm Vent rate 97, QTC 459 TWI lead 2, 3, aVF, V4-46 ASSESSMENT/PLAN: 1) card Abnormal ECG - troponin x 3 wnl - echo LV WNL - continous cardiac monitoring - cardiology consulted and following, Dr Herrera 2) pulm acute copd excerbation - continue standing duoneb - pt is allergic to codeine, unable to give robitussin with codeine - patient declines steroids reports an adverse reaction of "shakiness" - continue symbicort - patient reports itching after zithromax will change to bactrim and continue droplet isolation - pulmonary, Dr Maria consulted and following 3) GI colitis - tolerating PO fluids, observed eating a bermudez's sandwich, although patient reports she can not tolerate a regular diet - start flagyl and bactrim 4) neuro fibromyalgia - cont home dilaudid, prescription verified with [facility] reference # [id number] DVT PPX - lovenox FEN - tolerating po fluids - BMP in am - diabetic diet Dispo: Pt currently requires inpatient observation for management of her emergent conditions. Expected LOS is less than 2 [place]
[2017-02-02] MEDS: SULFAMETHOXAZOLE/TRIMETHOPRIM 800MG/160MG D.S. TABLET PO SCH ×2 (11:00→21:55)
[2017-02-02] MEDS: metroNIDAZOLE 250 MG TABLET PO SCH ×2 (14:00→21:55)
[2017-02-02] MEDS: PANTOPRAZOLE 40 MG TABLET (FP) PO SCH (15:00)
[2017-02-02] MEDS: ENOXAPARIN NA (PORCINE) 40 MG/0.4 ML DISP.SYRIN SQ SCH (15:05)
[2017-02-02] MEDS: traZODone HCL 50 MG TABLET (FP) PO SCH (21:55)
[2017-02-03] MEDS: metroNIDAZOLE 250 MG TABLET PO SCH (05:42)
[2017-02-03 06:20] VITALS: BP 118/65; PULSE 61; TEMP 98.6
--- NOTE | 2017-02-03 07:34 | PN ---
Progress Note, Physician - Current Medication List Current Medications: Active Medications Acetaminophen (Tylenol -) 650 mg PO Q6H PRN PRN Reason: FEVER OR PAIN Last Admin: 02/02/17 16:43 Dose: 650 mg Albuterol/Ipratropium (Duoneb -) 1 amp NEB Q4H PRN PRN Reason: SHORTNESS OF BREATH Last Admin: 02/01/17 11:15 Dose: 1 amp Budesonide/Formoterol Fumarate (Symbicort 160/4.5mcg -) 2 puff IH BID [facility] Last Admin: 02/02/17 21:56 Dose: 2 puff Enoxaparin Sodium (Lovenox -) 40 mg SQ DAILY [facility] Last Admin: 02/02/17 15:05 Dose: 40 mg Guaifenesin (Robitussin Dm -) 10 ml PO Q4H PRN PRN Reason: COUGH Last Admin: 02/02/17 10:25 Dose: 10 ml Hydromorphone HCl (Dilaudid -) 4 mg PO Q4H PRN PRN Reason: PAIN Last Admin: 02/03/17 05:43 Dose: 4 mg Insulin Aspart (Novolog Vial Sliding Scale -) 1 vial SQ BIDAC [facility] PRN Reason: Protocol Last Admin: 02/02/17 06:20 Dose: Not Given Lactobacillus Acidophilus (Bacid -) 1 tab PO DAILY [facility] Last Admin: 02/02/17 10:25 Dose: 1 tab Metronidazole (Flagyl -) 500 mg PO TID [facility] Last Admin: 02/03/17 05:42 Dose: 500 mg Pantoprazole Sodium (Protonix -) 40 mg PO DAILY [facility] Last Admin: 02/02/17 15:00 Dose: 40 mg Trazodone HCl (Desyrel -) 100 mg PO HS [facility] Last Admin: 02/02/17 21:55 Dose: 100 mg Trimethoprim/Sulfamethoxazole (Bactrim Ds -) 1 each PO BID [facility] Last Admin: 02/02/17 21:55 Dose: 1 each - Objective Vital Signs: Vital Signs Temperature 98.6 F 02/03/17 06:00 Pulse Rate 61 02/03/17 06:00 Respiratory Rate 16 02/03/17 06:00 Blood Pressure 118/65 02/03/17 06:00 O2 Sat by Pulse Oximetry (%) 100 02/03/17 06:00 Labs: CBC, BMP Problem List - Problems (1) Chest pain Code(s): R07.9 - CHEST PAIN, UNSPECIFIED Qualifiers: Chest pain type: unspecified Qualified Code(s): R07.9 - Chest pain, unspecified; R07.9 - Chest pain, unspecified (2) Sarcoid Code(s): D86.9 - SARCOIDOSIS, UNSPECIFIED (3) Cough Code(s): R05 - COUGH (4) COPD (chronic obstructive pulmonary disease) Code(s): J44.9 - CHRONIC OBSTRUCTIVE PULMONARY DISEASE, UNSPECIFIED Qualifiers : COPD type: unspecified COPD Qualified Code(s): J44.9 - Chronic obstructive pulmonary disease, unspecified; J44.9 - Chronic obstructive pulmonary disease, unspecified; J44.9 - Chronic obstructive pulmonary disease, unspecified; J44.9 - Chronic obstructive pulmonary disease, unspecified (5) H/O deep venous thrombosis Code(s): Z86.718 - PERSONAL HISTORY OF OTHER VENOUS THROMBOSIS AND EMBOLISM Assessment/Plan MP COUGH ?INFECTIOUS ?PERTUSSIS,POST INFECTIOUS HYPERREACTIVE AIRWAY,?SECONDARY TO SARCOID SARCOID COPD H/O DVT H/O COLON CA H/O PANCREATITIS colitis PLAN SYMBICORT ZITHROMAX PERTUSSIS SEROLOGY PENDING GI EVALUATION ECHO PEAK FLOW PFTS OUTPATIENT ANTI-TUSSIVES DR LORA Problem List - Problems (1) Chest pain Code(s): R07.9 - CHEST PAIN, UNSPECIFIED Qualifiers: Chest pain type: unspecified Qualified Code(s): R07.9 - Chest pain, unspecified; R07.9 - Chest pain, unspecified (2) Sarcoid Code(s): D86.9 - SARCOIDOSIS, UNSPECIFIED (3) Cough Code(s): R05 - COUGH (4) COPD (chronic obstructive pulmonary disease) Code(s): J44.9 - CHRONIC OBSTRUCTIVE PULMONARY DISEASE, UNSPECIFIED (5) H/O deep venous thrombosis Code(s): Z86.718 - PERSONAL HISTORY OF OTHER VENOUS THROMBOSIS AND EMBOLISM
[2017-02-03] MEDS: LACTOBACILLUS ACIDOPHILUS 1 EACH TAB (FP) PO SCH (09:22)
[2017-02-03] MEDS: SULFAMETHOXAZOLE/TRIMETHOPRIM 800MG/160MG D.S. TABLET PO SCH (09:22)
[2017-02-03] MEDS: PANTOPRAZOLE 40 MG TABLET (FP) PO SCH (09:22)
[2017-02-03] MEDS: ENOXAPARIN NA (PORCINE) 40 MG/0.4 ML DISP.SYRIN SQ SCH (09:22)
--- NOTE | 2017-02-03 09:43 | PN ---
Progress Note, Physician History of Present Illness: Cough improving, abd discomfort and diarrhea persists. Eating [employer] food last night. - Current Medication List Current Medications: Active Medications Acetaminophen (Tylenol -) 650 mg PO Q6H PRN PRN Reason: FEVER OR PAIN Last Admin: 02/02/17 16:43 Dose: 650 mg Albuterol/Ipratropium (Duoneb -) 1 amp NEB Q4H PRN PRN Reason: SHORTNESS OF BREATH Last Admin: 02/01/17 11:15 Dose: 1 amp Budesonide/Formoterol Fumarate (Symbicort 160/4.5mcg -) 2 puff IH BID [facility] Last Admin: 02/02/17 21:56 Dose: 2 puff Enoxaparin Sodium (Lovenox -) 40 mg SQ DAILY [facility] Last Admin: 02/03/17 09:22 Dose: 40 mg Guaifenesin (Robitussin Dm -) 10 ml PO Q4H PRN PRN Reason: COUGH Last Admin: 02/02/17 10:25 Dose: 10 ml Hydromorphone HCl (Dilaudid -) 4 mg PO Q4H PRN PRN Reason: PAIN Last Admin: 02/03/17 09:21 Dose: 4 mg Insulin Aspart (Novolog Vial Sliding Scale -) 1 vial SQ BIDAC [facility] PRN Reason: Protocol Last Admin: 02/02/17 06:20 Dose: Not Given Lactobacillus Acidophilus (Bacid -) 1 tab PO DAILY [facility] Last Admin: 02/03/17 09:22 Dose: 1 tab Metronidazole (Flagyl -) 500 mg PO TID [facility] Last Admin: 02/03/17 05:42 Dose: 500 mg Pantoprazole Sodium (Protonix -) 40 mg PO DAILY [facility] Last Admin: 02/03/17 09:22 Dose: 40 mg Trazodone HCl (Desyrel -) 100 mg PO HS [facility] Last Admin: 02/02/17 21:55 Dose: 100 mg Trimethoprim/Sulfamethoxazole (Bactrim Ds -) 1 each PO BID [facility] Last Admin: 02/03/17 09:22 Dose: 1 each - Objective Vital Signs: Vital Signs Temperature 98.6 F 02/03/17 06:00 Pulse Rate 61 02/03/17 06:00 Respiratory Rate 16 02/03/17 07:55 Blood Pressure 118/65 02/03/17 06:00 O2 Sat by Pulse Oximetry (%) 100 02/03/17 07:55 Constitutional: Yes: No Distress, Calm Neck: Yes: Supple Cardiovascular: Yes: Regular Rate and Rhythm, Murmur (2/6 SM) Respiratory: Yes: Regular, Diminished Gastrointestinal: Yes: Soft, Hypoactive Bowel Sounds Edema: No Labs: CBC, BMP 02/01/17 07:50 02/01/17 07:00 INR, PTT INR 0.95 (0.82-1.09) L 01/31/17 20:00 Problem List - Problems (1) COPD (chronic obstructive pulmonary disease) Code(s): J44.9 - CHRONIC OBSTRUCTIVE PULMONARY DISEASE, UNSPECIFIED Qualifiers : COPD type: unspecified COPD Qualified Code(s): J44.9 - Chronic obstructive pulmonary disease, unspecified; J44.9 - Chronic obstructive pulmonary disease, unspecified; J44.9 - Chronic obstructive pulmonary disease, unspecified; J44.9 - Chronic obstructive pulmonary disease, unspecified (2) Cough Code(s): R05 - COUGH (3) Sarcoid Code(s): D86.9 - SARCOIDOSIS, UNSPECIFIED (4) Sickle cell trait Code(s): D57.3 - SICKLE-CELL TRAIT (5) Colitis Code(s): K52.9 - NONINFECTIVE GASTROENTERITIS AND COLITIS, UNSPECIFIED (6) Abnormal ECG Code(s): R94.31 - ABNORMAL ELECTROCARDIOGRAM [ECG] [EKG] (7) Moderate to severe mitral regurgitation Code(s): I34.0 - NONRHEUMATIC MITRAL (VALVE) INSUFFICIENCY Assessment/Plan 02/02/2017 Echo: Normal biventricular size and fxn, mod-severe MR, tr SC 1. Abdominal pain referable to colitis 2. Moderate-severe MR 3. Abnormal ECG 4. 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 Fibromyalgia 6. COPD 7. History of sickle cell trait 8. History of colon CA 9. H/o pancreatitis PLAN: 1. Pulmonary input noted, peak flows, PFT, BD and O2 as needed 2. Analgesics as needed, empiric abx, f/u stool samples, GI evaluation 3. Outpatient cardiac MRI or PET to exclude cardiac sarcoidosis, outpatient stress testing
--- NOTE | 2017-02-03 10:32 | DS ---
Physical Exam: SUBJECTIVE: Patient seen and examined, reports feeling better, tolerating diet. OBJECTIVE:This is a 56 year old female with significant past medical history of sarcoidosis, fibromyalgia, COPD presented to the ED with left leg swelling and pain x 3 weeks, cough and hoarse voice x 5 weeks. Pt denies chest pain, SOB, palpitations. She states the cough just takes over and is unbearable. ER course was notable for: (1) CXR no acute findings (2) Sono LLE without evidence of DVT (3) ECG with abnormal T waves Vital Signs Period Temp Pulse Resp BP Sys/Jimenez Pulse Ox Last 24 Hr 97.8 F-98.6 F 59-77 16-18 118-127/65-77 98-100 PHYSICAL EXAM GENERAL: The patient is awake, alert, and fully oriented, in no acute distress. HEAD: Normal with no signs of trauma. EYES: PERRL, extraocular movements intact, sclera anicteric, conjunctiva clear. ENT: Ears normal, nares patent, oropharynx clear without exudates, moist mucous membranes. NECK: Trachea midline, full range of motion, supple. LUNGS: Breath sounds equal, clear to auscultation bilaterally, no wheezes, no crackles, no accessory muscle use. HEART: Regular rate and rhythm, S1, S2 without murmur, rub or gallop. ABDOMEN: Soft, nontender, nondistended, normoactive bowel sounds, no guarding, no rebound, no hepatosplenomegaly, no masses. EXTREMITIES: 2+ pulses, warm, well-perfused, no edema. NEUROLOGICAL: Cranial nerves II through XII grossly intact. Normal speech, gait not observed. PSYCH: Normal mood, normal affect. SKIN: Warm, dry, normal turgor, no rashes or lesions noted. LABS Laboratory Results - last 24 hr 02/03/17 05:47 POC Glucometer 108 CBC WBC 4.0 K/mm3 (4.0-10.8) 02/01/17 07:50 RBC 4.40 M/mm3 (3.60-5.2) 02/01/17 07:50 Hgb 11.3 GM/dl (10.7-15.3) D 02/01/17 07:50 Hct 34.6 % (32.4-45.2) 02/01/17 07:50 MCV 78.5 fl (80-96) L 10/24/17 07:50 MCH 25.6 pg (25.7-33.7) L 02/01/17 07:50 MCHC 32.6 g/dl (32.0-36.0) 02/01/17 07:50 RDW 17.5 % (11.6-15.6) H 02/01/17 07:50 Plt Count 211 K/MM3 (134-434) 02/01/17 07:50 MPV 10.1 fl (7.5-11.1) 02/01/17 07:50 Neutrophils % No Result Required. 02/01/17 07:50 Neutrophils % (Manual) 49 % (42.8-82.8) 02/01/17 07:50 Band Neuts % (Manual) 1 % (0-10) 02/01/17 07:50 Lymphocytes % No Result Required. 02/01/17 07:50 Lymphocytes % (Manual) 36 % (8-40) 02/01/17 07:50 Monocytes % 5.2 % (3.8-10.2) 01/31/17 20:00 Monocytes % (Manual) 14 % (3.8-10.2) H 02/01/17 07:50 Eosinophils % 0.2 % (0-4.5) 01/31/17 20:00 Basophils % 3.1 % (0-2.0) H 01/31/17 20:00 CMP Sodium 138 mmol/L (136-145) 02/01/17 07:00 Potassium 4.3 mmol/L (3.5-5.1) 02/01/17 07:00 Chloride 107 mmol/L (98-107) 02/01/17 07:00 Carbon Dioxide 24 mmol/L (22-28) 02/01/17 07:00 Anion Gap 7 (8-16) L 02/01/17 07:00 BUN 7 mg/dl (7-18) 02/01/17 07:00 Creatinine 0.5 mg/dl (0.6-1.3) L 02/01/17 07:00 Creat Clearance w eGFR > 60 (>60) 01/31/17 20:00 POC Glucometer 108 UNITS (()) 02/03/17 05:47 Random Glucose 111 mg/dl (74-106) H 02/01/17 07:00 Calcium 9.6 mg/dl (8.4-10.2) 02/01/17 07:00 Phosphorus 3.6 mg/dl (2.5-4.6) 02/01/17 07:00 Magnesium 2.1 mg/dL (1.8-2.4) 02/01/17 07:00 Total Bilirubin 0.5 mg/dl (0.2-1.0) 01/31/17 20:00 AST 22 U/L (10-42) 01/31/17 20:00 ALT 9 U/L (10-40) L D 01/31/17 20:00 Alkaline Phosphatase 57 U/L (32-92) D 01/31/17 20:00 Creatine Kinase 89 IU/L (26-192) 02/02/17 07:00 Troponin I < 0.03 ng/ml (0.00-0.05) 02/02/17 07:00 Total Protein 7.1 g/dl (6.4-8.3) D 01/31/17 20:00 Albumin 3.9 g/dl (3.5-5.0) 01/31/17 20:00 Total Amylase 70 U/L (25-125) 02/01/17 07:30 Lipase 56 U/L (22-51) H 02/01/17 07:30 IMAGING Left lower extremity venous duplex. Indication: Left lower extremity pain and swelling. Technique: Real-time grayscale, color Doppler and spectral Doppler sonogram of the deep veins in the left lower extremity was performed with the technologist utilizing compression and augmentation maneuvers. Left common femoral vein including its junction with the greater saphenous vein , the profunda femoral, femoral, popliteal and posterior tibial veins were interrogated in the left lower extremity. Right common femoral vein was also interrogated. Images are submitted for review. Comparison: None. Findings: No evidence of deep vein thrombosis in the left lower extremity. The interrogated veins, as listed above, demonstrate compressibility and flow related color Doppler signal. Technologist reports patient's tenderness/sensitivity in the left calf, which limits augmentation of the posterior tibial veins in distal popliteal vein. Interrogated portion of the right common femoral vein is also patent with no evidence of thrombosis. Impression: No evidence of left lower extremity deep vein thrombosis, as above. Reported By: Kumar Chakraborty MD 01/31/172109 Chest x-ray-AP portable view Indication: Dyspnea. Comparison: 09/12/2012 chest x -ray Findings: No evidence of airspace consolidation, pulmonary vascular congestion or pleural effusion. There is no definable pneumothorax. Normal size and contours of the cardia mediastinal silhouette. There is calcific atherosclerosis along the aortic arch. There are right hilar surgical clips in right paratracheal surgical clips. No abnormal deviation of the trachea. Impression: No evidence of airspace consolidation, pulmonary vascular congestion or pleural effusion. Reported By: Kumar Chakraborty MD 01/31/172023 ct of chest/abd/pelvis with oral contrast: consistent with chronic lung disease , no acute pathology of the chest, diffuse thickening and irregularity of the remainder of the colon suspicious for colitis as per radiologist, Dr Han ECG Normal Sinus Rhythm Vent rate 97, QTC 459 TWI lead 2, 3, aVF, V4-46 HOSPITAL COURSE: Patient was admitted to observation for Abnormal ECG, troponin x 3 wnl, echo LV WNL, patient was placed on continous cardiac monitoring no dysarhythmias was noted. cardiology consulted and followed Dr Herrera. acute copd excerbation was noted, she was placed on standing duoneb, pt is allergic to codeine, unable to give robitussin with codeine, she declines steroids reports an adverse reaction of "shakiness" however, she did agree to symbicort. Paroxsmal cough was noted she was started on empric zithromax. However, she reported itching after administartion and antibiotic was changed to bactrim and continued droplet isolation, training and development director, Dr Maria was consulted and followed. colitis was noted on ct scan of abd/pelvis. patient tolerating PO fluids, observed eating a [employer] sandwich, although patient reports she can not tolerate a regular diet. she was kept on flagyl and bactrim throughout admission. past medical history of fibromyalgia, continued home dilaudid, prescription verified with [facility] reference # [id number] Date of Admission:01/31/17 Date of Discharge: 02/03/17 Minutes to complete discharge: 45 Discharge Summary Reason For Visit: ABNORMAL EKG Current Active Problems Abnormal ECG (Acute) COPD (chronic obstructive pulmonary disease) (Acute) Chest pain (Acute) Colitis (Acute) Cough (Acute) Fibromyalgia (Acute) H/O deep venous thrombosis (Acute) Moderate to severe mitral regurgitation (Acute) Sarcoid (Acute) Sickle cell trait (Acute) Viral upper respiratory illness (Acute) Condition: Good - Instructions Diet, Activity, Other Instructions: you were admitted from the hospital for colitis continue bland diet, then advance diet as tolerated continue bactrim and flagyl as prescribed continue symbicort please follow up with Dr Herrera cardiology for your outpatient stress test within 2 weeks please follow up with Dr Maria, pulmonary within 3 weeks if any new persistent symptoms develop please return to the emergency department Referrals: Juancarlos Maria MD [Staff Physician] - 3 Weeks Nathan Garcia MD [Primary Care Provider] - 2 Weeks Boyd Herrera MD [Staff Physician] - 2 Weeks Disposition: HOME - Home Medications Comprehensive Discharge Medication List: Ambulatory Orders Trazodone HCl 100 mg PO HS 09/12/12 Oxycodone HCl/Acetaminophen [Percocet 5-325 mg Tablet -] 2 tab PO Q4H PRN #20 tablet 07/06/13 Albuterol Sulfate Inhaler - [Ventolin Hfa Inhaler -] 2 inh PO Q6H PRN 01/31/17 Hydromorphone [Dilaudid -] 4 mg PO Q3H 01/31/17 This patient is new to me today: No Emergency Visit: Yes ED Registration Date: 01/31/17 Care time: The patient presented to the Emergency Department on the above date and was hospitalized for further evaluation of their emergent condition. Critical Care patient: No - Discharge Referral Referred to [facility] No
[2017-02-04 06:07] LABS: PERTUSSIS TOXIN IGA <1.0 index (0.0-0.9); PERTUSSIS TOXIN IGG 1.48 index (0.00-0.94)
== END 2017-02-03 10:36 | disposition home or self-care (01) ==
LOC: FER 19:11 → FM/S 21:47
PROVIDERS: ADMIT Internal Medicine; ATTEND Nurse Practitioner Family
PROC: 3E03329 Introduction of Other Anti-infective into Peripheral Vein, Percutaneous Approach (ICD-10-PCS; principal; 2017-01-31)
PROC: 3E033NZ Introduction of Analgesics, Hypnotics, Sedatives into Peripheral Vein, Percutaneous Approach (ICD-10-PCS; 2017-01-31)
PROC: 3E033GC Introduction of Other Therapeutic Substance into Peripheral Vein, Percutaneous Approach (ICD-10-PCS; 2017-01-31)
PROC: 3E013GC Introduction of Other Therapeutic Substance into Subcutaneous Tissue, Percutaneous Approach (ICD-10-PCS; 2017-01-31)
PROC: 3E0F7GC Introduction of Other Therapeutic Substance into Respiratory Tract, Via Natural or Artificial Opening (ICD-10-PCS; 2017-01-31)
DX: R94.31 Abnormal electrocardiogram [ECG] [EKG] (principal); R07.9 Chest pain, unspecified; J44.1 Chronic obstructive pulmonary disease with (acute) exacerbation; J06.9 Acute upper respiratory infection, unspecified; R05 Cough; I34.0 Nonrheumatic mitral (valve) insufficiency; B97.89 Other viral agents as the cause of diseases classified elsewhere; M79.7 Fibromyalgia; D86.9 Sarcoidosis, unspecified; D57.3 Sickle-cell trait; K52.9 Noninfective gastroenteritis and colitis, unspecified; F17.210 Nicotine dependence, cigarettes, uncomplicated; Z88.6 Allergy status to analgesic agent; Z88.8 Allergy status to other drugs, medicaments and biological substances; Z91.041 Radiographic dye allergy status; Z85.038 Personal history of other malignant neoplasm of large intestine; Z86.718 Personal history of other venous thrombosis and embolism; Z87.19 Personal history of other diseases of the digestive system
CPT/HCPCS: 36415; 71010-TC; 71250-TC; 74176-TC; 80048; 80053; 82150; 82550; 83690; 83735; 84100; 84484; 85025; 85379; 85610; 86615; 87798; 93005; 93306-TC; 93971-TC; 94640; 96365; 96372; 96375; 96376; 99284-25; G0378